=== PATIENT | female | born 1960 ===

== ENCOUNTER 2018-02-09 12:22 | Outpatient (CLI) | payer OTHER ==
[~2018-02-09 12:22] MED LIST: AMOX1TAB12 PO; ATENOLOL50 MG PO; CLONAZEPAM1 MG PO; DOCUSATE SODIU100 MG PO; DOLOGESIC 500-1 EACH PO; GABAPENTIN600 MG PO; GABAPENTIN800 MG PO; LOSARTA PO; MEDROLPACK PO; METFORMIN HCL500 MG PO; PROTONIX40 M1 PO; RESTORIL7.5 MG PO; ZANTAC300 MG PO
== END 2018-02-09 12:31 | disposition home or self-care (01) ==
LOC: RAD 12:22
DX: M51.36 Other intervertebral disc degeneration, lumbar region (principal); Z98.1 Arthrodesis status